=== PATIENT | female | born 1930 | race Caucasian/White ===

== ENCOUNTER 2017-11-19 13:58 | Inpatient (IN) | payer MEDICARE, OTHER ==
[2017-11-19 14:30] LABS: % BASOPHILS 0.1 % (0.0-2.0); % EOSINOPHILS 1.5 % (0.0-5.0); % LYMPHOCYTES 20.3 % (20.0-50.0); % MONOCYTES 3.9 % (2.0-10.0); % NEUTROPHILS 74.2 % (40.0-80.0); EOSINOPHILE ABSOLUTE 0.2 Th/cmm (0.1-0.4); HEMATOCRIT 42.9 % (41.0-60); HEMOGLOBIN 14.4 gm/dL (12-16); LYMPHOCYTE ABSOLUTE 2.7 Th/cmm (1.5-3.0); MEAN CELL VOLUME 92.8 fl (81-100); MEAN CORPUSCULAR HEMOGLOBIN 31.1 pg (27.0-31.0); MEAN CORPUSCULAR HGB CONC 33.5 pg (28.0-36.0); MEAN PLATELET VOLUME 7.8 fl; MONOCYTE ABSOLUTE 0.5 Th/cmm (0.3-1.0); NEUTROPHILE ABSOLUTE 9.7 Th/cmm (1.8-8.0); PLATELET COUNT 308 Th/cmm (150-400); RED BLOOD COUNT 4.62 Mil/cmm (3.80-5.20); RED CELL DISTRIBUTION WIDTH 13.5 % (11.5-20.0)
--- NOTE | 2017-11-19 14:32 | ED Physician Chart ---
ED Chief Complaint/HPI - Patient Information Date Seen:: 11/19/17 Time Seen:: 14:10 Chief Complaint:: poor oral intake History of Present Illness:: Patient is sent here for poor oral intake and possible placement of a gastrostomy tube. Per daughter patient had some crampy abdominal pain earlier today. Historian:: Patient, EMS Review:: Nurse's Note Reviewed ED Review of Systems - Review of Systems General/Constitutional: Loss of appetite Skin: No skin lesions, No rash, No bruising Head: No headache, No light-headedness Eyes: No loss of vision, No pain, No diplopia ENT: No earache, No nasal drainage, No sore throat, No tinnitus Neck: No neck pain, No swelling, No thyromegaly, No stiffness, No mass noted Cardio Vascular: No chest pain, No palpitations, No PND, No orthopnea, No edema Pulmonary: No SOB, No cough, No sputum, No wheezing GI: No nausea, No vomiting, No diarrhea, No pain, No melena, No hematochezia, No constipation, No hematemesis G/U: No dysuria, No frequency, No hematuria Musculoskeletal: No bone or joint pain, No back pain, No muscle pain Endocrine: No polyuria, No polydipsia Psychiatric: No prior psych history, No depression, No anxiety, No suicidal ideation Hematopoietic: No bruising, No lymphadenopathy Allergic/Immuno: No urticaria, No angioedema Neurological: No syncope, No focal symptoms, No weakness, No paresthesia, No headache, No seizure, No dizziness, No confusion, No vertigo ED Past Medical History - Past Medical History Past Medical History: CVA/TIA, Other (status post pneumonia; status post sepsis ; history of lactic acidosis; status post pneumonia; history of dehydration; status post deep vein thrombosis; history of atrial fibrillation; history of urinary tract infection;) Family History: Other (unavailable) Social History: Care Facility Surgical History: other (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; has right- sided paralysis) Psychiatricy History: None Medication: Reviewed Family Medical History - Family Member Mother History Unknown: Yes Ethnicity: Living Status: ED Physical Exam - Physical Examination Other Gen/Cons comments:: Chronically ill-appearing; confused; does not know the correct year Head: Atraumatic Eyes: Lids, conjuctiva normal, PERRL Skin: Nl inspection, No rash, No skin lesions, No ecchymosis ENMT: External ears, nose nl, Nasal exam nl Neck: No nuchal rigidity Respiratory: Nl effort/Exclusion Other Respiratory comments:: Diffuse anterior rales Cardio Vascular: RRR, No murmur, gallop, rubs, NL S1 S2 GI: No tenderness/rebounding/guarding, No organomegaly, No hernia : No CVA tenderness Other Neuro/Psych comments:: Drooping of right side of mouth and right upper and lower extremity weakness Misc: Normal back ED Labs/Radiology/EKG Results - Lab Results Results: Laboratory Results - last 24 hr 11/19/17 11/19/17 11/19/17 14:22 14:22 14:22 WBC 13.1 H RBC 4.62 Hgb 14.4 Hct 42.9 MCV 92.8 MCH 31.1 H MCHC Differential 33.5 RDW 13.5 Plt Count 308 MPV 7.8 Neutrophils % 74.2 Lymphocytes % 20.3 Monocytes % 3.9 Eosinophils % 1.5 Basophils % 0.1 PT 11.1 INR 1.07 PTT (Actin FS) 27.2 Sodium 139 Potassium 3.7 Chloride 108 H Carbon Dioxide 22.6 Anion Gap 12.1 BUN 18 Creatinine 0.5 L Est GFR ( Amer) TNP Est GFR (Non-Af Amer) TNP BUN/Creatinine Ratio 36.0 Glucose 90 Calcium 9.0 - Radiology Results Results: Chest x-ray was normal except for slight elevation of right hemidiaphragm ED Septic Shock - . 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 - Patient Disposition Admitted to:: Med/Surg Admitting Medical Physician:: Sanjiv Bajwa Condition at Disposition:: Stable, Unchanged ED Discharge Plan - Patient Disposition Admit/Discharge/Transfer: Acute Care w/in this hosp
[2017-11-19 14:44] LABS: INR 1.07 (0.5-1.4); PROTHROMBIN TIME (TEST) 11.1 SECONDS (9.5-11.5)
[2017-11-19 14:46] LABS: WHITE BLOOD COUNT 13.1 Th/cmm (4.8-10.8)
[2017-11-19 14:48] LABS: ANION GAP 12.1 (7.0-16.0); BUN - UREA NITROGEN 18 mg/dL (7-25); CARBON DIOXIDE 22.6 mEq/L (21.0-31.0); CHLORIDE 108 mEq/L (98-107); CREATININE - SERUM 0.5 mg/dL (0.6-1.2); GLUCOSE 90 mg/dL (70-105); POTASSIUM SERUM 3.7 mEq/L (3.5-5.1); SODIUM SERUM 139 mEq/L (136-145)
--- NOTE | 2017-11-19 14:53 | Diagnostic Imaging Report ---
CHEST X-RAY: AP view INDICATION: rales COMPARISON: None FINDINGS: Mild chronic lung changes are noted. There is no focal consolidation or pleural effusions The heart is normal in size. The osseous structures demonstrate no acute abnormalities. There may be a retrocardiac hiatal hernia. IMPRESSION: No focal consolidation identified. Possible retrocardiac hiatal hernia. If indicated lateral view may be obtained.
[2017-11-19] MEDS ORDERED: Albuterol Nebulizer 2.5mg/3mL HHN PRN (15:16)
[2017-11-19] MEDS ORDERED: Ipratropium Neb 0.5 mg/2.5 mL UD IH PRN (15:16)
[2017-11-19] MEDS ORDERED: Maalox 30 mL Cup PO PRN (15:16)
[2017-11-19] MEDS ORDERED: guaiFENesin 200 MG/10 ML UDC PO PRN (15:16)
[2017-11-19] MEDS: D5-0.45NS 1,000 ML IV SCH (16:49)
--- NOTE | 2017-11-19 17:05 | History & Physical ---
ADMIT DATE: 11/19/2017 CHIEF COMPLAINT: Failure to thrive, nonhealing wounds. HISTORY OF PRESENT ILLNESS: This is an 86-year-old female with history of dementia, functional quadriplegia, constipation, decubitus ulcer, admitted secondary to not eating or drinking, not taking her medications. Daughters were concerned about the patient and brought the patient for further management. They were considering a G-tube placement. PAST MEDICAL HISTORY: As mentioned in history of present illness. PAST SURGICAL HISTORY: Previous G-tube placement. ALLERGIES: No known drug allergies. MEDICATIONS: Tylenol, Dulcolax, and multivitamin. FAMILY HISTORY: Noncontributory. SOCIAL HISTORY: The patient is a [facility] patient requiring 24-hour total care. REVIEW OF SYSTEMS: This is limited secondary to the patient's current mental state. Information was got via daughters at the bedside. Also got information from nursing staff at [facility] as well as from Dr. Scanlon who follows the patient. PHYSICAL EXAMINATION: VITAL SIGNS: Blood pressure 130/60, respiration 18, pulse 80, temperature 98.6, weight 100 kilograms. GENERAL: Chronically ill-appearing elderly female. NECK: Supple. No mass. LUNGS: Equal breath sounds. Few rhonchi. HEART: Regular rate and rhythm. Systolic ejection murmur. ABDOMEN: Soft, globular. EXTREMITIES: Positive excoriation. NEUROLOGIC: Limited, positive decubitus ulcer stage 2 with contractures. LABORATORY DATA: WBC 18. The rest are pending. ASSESSMENT AND PLAN: Failure to thrive, leukocytosis, possible sepsis, dementia, functional quadriplegia, decubitus ulcer, constipation. We will provide the patient with IV hydration and empiric IV antibiotic. We will send a UA and C and S. We may need to be in and out. The case was discussed with the family, they are agreeable with possible G-tube placement. Continue with wound care. We will refer the patient to program eligibility specialist. We will put the patient on laxative. We will continue to monitor the patient closely. JOB# [id number]
[2017-11-19] MEDS: cefTRIAXone 1 GM in Sodium Chloride 0.9% 50 ML IV SCH (17:20)
[2017-11-19 20:20] VITALS: BP 116/60
[2017-11-19 21:42] LABS: URINE MICROSCOPIC INDICATED? YES; URINE SOURCE CATH
[2017-11-19 21:43] LABS: URINE BILIRUBIN NEGATIVE (NEGATIVE); URINE BLOOD SMALL (NEGATIVE); URINE GLUCOSE (UA) NEGATIVE (NEGATIVE); URINE KETONE NEGATIVE (NEGATIVE); URINE LEUKOCYTE ESTERASE LARGE (NEGATIVE); URINE NITRATE POSITIVE (NEGATIVE); URINE PROTEIN TRACE mg/dL (NEGATIVE); URINE UROBILINOGEN 0.2 E.U./dL (0.2 - 1.0)
[2017-11-19 21:57] LABS: URINE CLARITY CLOUDY (CLEAR); URINE COLOR YELLOW
[2017-11-19 22:02] LABS: URINE BACTERIA MANY /hpf (NONE SEEN); URINE EPITHELIAL CELLS NONE SEEN /lpf (FEW); URINE WBC >100 /hpf (0-5)
[2017-11-20] MEDS: D5-0.45NS 1,000 ML IV SCH (04:13)
[2017-11-20 07:35] LABS: % BASOPHILS 0.4 % (0.0-2.0); % EOSINOPHILS 3.2 % (0.0-5.0); % LYMPHOCYTES 25.8 % (20.0-50.0); % NEUTROPHILS 63.6 % (40.0-80.0); EOSINOPHILE ABSOLUTE 0.3 Th/cmm (0.1-0.4); HEMATOCRIT 37.5 % (41.0-60); HEMOGLOBIN 12.6 gm/dL (12-16); LYMPHOCYTE ABSOLUTE 2.6 Th/cmm (1.5-3.0); MEAN CELL VOLUME 91.8 fl (81-100); MEAN CORPUSCULAR HEMOGLOBIN 30.8 pg (27.0-31.0); MEAN CORPUSCULAR HGB CONC 33.6 pg (28.0-36.0); MEAN PLATELET VOLUME 7.8 fl; MONOCYTE ABSOLUTE 0.7 Th/cmm (0.3-1.0); NEUTROPHILE ABSOLUTE 6.4 Th/cmm (1.8-8.0); PLATELET COUNT 272 Th/cmm (150-400); RED BLOOD COUNT 4.09 Mil/cmm (3.80-5.20); RED CELL DISTRIBUTION WIDTH 13.9 % (11.5-20.0)
[2017-11-20 08:00] LABS: ANION GAP 10.7 (7.0-16.0); BUN - UREA NITROGEN 15 mg/dL (7-25); CALCIUM SERUM 8.4 mg/dL (8.6-10.3); CARBON DIOXIDE 20.9 mEq/L (21.0-31.0); CHLORIDE 108 mEq/L (98-107); CREATININE - SERUM 0.5 mg/dL (0.6-1.2); GLUCOSE 95 mg/dL (70-105); POTASSIUM SERUM 3.6 mEq/L (3.5-5.1); SODIUM SERUM 136 mEq/L (136-145)
[2017-11-20 08:17] LABS: INR 1.14 (0.5-1.4)
[2017-11-20] MEDS ORDERED: CALCIUM CARBONATE PO SCH (09:00)
[2017-11-20] MEDS ORDERED: [UNRECOGNIZED DRUG - OTHER] PO SCH (09:00)
[2017-11-20] MEDS ORDERED: VITAMIN D3 PO SCH (09:00)
[2017-11-20] MEDS ORDERED: Propofol 10 mg/mL 20mL Vial **SURGERY USE ONLY IV ONE (13:00)
[2017-11-20] MEDS ORDERED: Lidocaine 2% Gel 5 mL TP ONE (13:00)
[2017-11-20] MEDS: cefTRIAXone 1 GM in Sodium Chloride 0.9% 50 ML IV SCH (14:36)
[2017-11-20] MEDS ORDERED: VTE Chemical Prophylaxis Screen/Admission MC PRN (15:03)
--- NOTE | 2017-11-20 15:23 | Internal Medicine Prog Note ---
Internal Medicine Subjective - Subjective Patient seen and examined:: with staff, chart reviewed Patient is:: awake, non-verbal, non-interactive Patient Complaints of:: congestion, cough, unable to sleep Per staff patient has:: no adverse event, no episodes of fall, agitated, combative, noncompliant, tolerating meds Internal Medicine Objective - Results Result Diagrams: 11/20/17 07:20 11/20/17 07:20 Recent Labs: Laboratory Last Values WBC 10.0 Th/cmm (4.8-10.8) D 11/20/17 07:20 RBC 4.09 Mil/cmm (3.80-5.20) 11/20/17 07:20 Hgb 12.6 gm/dL (12-16) 11/20/17 07:20 Hct 37.5 % (41.0-60) L D 11/20/17 07:20 MCV 91.8 fl (81-100) 11/20/17 07:20 MCH 30.8 pg (27.0-31.0) 11/20/17 07:20 MCHC Differential 33.6 pg (28.0-36.0) 11/20/17 07:20 RDW 13.9 % (11.5-20.0) 11/20/17 07:20 Plt Count 272 Th/cmm (150-400) 11/20/17 07:20 MPV 7.8 fl 11/20/17 07:20 Neutrophils % 63.6 % (40.0-80.0) 11/20/17 07:20 Lymphocytes % 25.8 % (20.0-50.0) 11/20/17 07:20 Monocytes % 7.0 % (2.0-10.0) 11/20/17 07:20 Eosinophils % 3.2 % (0.0-5.0) 11/20/17 07:20 Basophils % 0.4 % (0.0-2.0) 11/20/17 07:20 PT 12.0 SECONDS (9.5-11.5) H 11/20/17 07:20 INR 1.14 (0.5-1.4) 11/20/17 07:20 PTT (Actin FS) 33.0 SECONDS (26.0-38.0) 11/20/17 07:20 Sodium 136 mEq/L (136-145) 11/20/17 07:20 Potassium 3.6 mEq/L (3.5-5.1) 11/20/17 07:20 Chloride 108 mEq/L (98-107) H 11/20/17 07:20 Carbon Dioxide 20.9 mEq/L (21.0-31.0) L 11/20/17 07:20 Anion Gap 10.7 (7.0-16.0) 11/20/17 07:20 BUN 15 mg/dL (7-25) 11/20/17 07:20 Creatinine 0.5 mg/dL (0.6-1.2) L 11/20/17 07:20 Est GFR ( Amer) TNP 11/20/17 07:20 Est GFR (Non-Af Amer) TNP 11/20/17 07:20 BUN/Creatinine Ratio 30.0 11/20/17 07:20 Glucose 95 mg/dL (70-105) 11/20/17 07:20 Calcium 8.4 mg/dL (8.6-10.3) L 11/20/17 07:20 Urine Source CATH 11/19/17 21:35 Urine Color YELLOW 11/19/17 21:35 Urine Clarity CLOUDY (CLEAR) H 11/19/17 21:35 Urine pH 6.0 (4.6 - 8.0) 11/19/17 21:35 Ur Specific [place] 1.015 (1.005-1.030) 11/19/17 21:35 Urine Protein TRACE mg/dL (NEGATIVE) 11/19/17 21:35 Urine Glucose (UA) NEGATIVE mg/dL (NEGATIVE) 11/19/17 21:35 Urine Ketones NEGATIVE mg/dL (NEGATIVE) 11/19/17 21:35 Urine Blood SMALL (NEGATIVE) H 11/19/17 21:35 Urine Nitrate POSITIVE (NEGATIVE) H 11/19/17 21:35 Urine Bilirubin NEGATIVE (NEGATIVE) 11/19/17 21:35 Urine Urobilinogen 0.2 E.U./dL (0.2 - 1.0) 11/19/17 21:35 Ur Leukocyte Esterase LARGE (NEGATIVE) H 11/19/17 21:35 Urine RBC 2-5 /hpf (0-5) 11/19/17 21:35 Urine WBC >100 /hpf (0-5) H 11/19/17 21:35 Ur Epithelial Cells NONE SEEN /lpf (FEW) 11/19/17 21:35 Urine Bacteria MANY /hpf (NONE SEEN) H 11/19/17 21:35 - Physical Exam Vitals and I&O: Vital Signs Temp 97.6 F 11/20/17 11:44 Pulse 80 11/20/17 11:44 Resp 18 11/20/17 11:44 BP 105/69 11/20/17 11:44 Pulse Ox 98 11/20/17 11:44 Intake & Output 11/19/17 11/20/17 11/20/17 18:59 06:59 18:59 Intake Total 50 972 830.667 Balance 50 972 830.667 Weight (lbs) 51.71 kg 56.245 kg Intake: Intake, IV Amount 50 912 830.667 D5-0.45NS 1,000 ml @ 80 912 830.667 mls/hr IV .[id number] [facility] Rx #:[id number] cefTRIAXone 1 gm In 50 Sodium Chloride 0.9% 50 ml @ 100 mls/hr IV Q24HR [facility] Rx#:[id number] Oral 60 Other: # Voids 2 3 # Bowel Movements 2 3 Stool Characteristics Soft Brown Weight Source Bedscale Bedscale Active Medications: Current Medications Acetaminophen (Tylenol) 650 mg PO Q4HR PRN PRN Reason: Pain (Mild) Stop: 01/18/18 15:14 Last Admin: 11/19/17 22:51 Dose: 650 mg Al Hydrox/Mg Hydrox/Simethicone (Maalox) 30 ml PO Q6H PRN PRN Reason: Dyspepsia Stop: 01/18/18 15:15 Last Admin: 11/19/17 16:38 Dose: 30 ml Albuterol Sulfate (Albuterol 2.5mg/3ml Neb Ud) 2.5 mg HHN Q2HRT PRN PRN Reason: Shortness of Breath or Wheeze Stop: 01/18/18 15:15 Baclofen (Lioresal) 10 mg PO HS [facility] Stop: 01/18/18 20:59 Last Admin: 11/19/17 20:26 Dose: Not Given Calcium Carbonate (Calcium Carb) 600 mg PO DAILY [facility] Stop: 01/19/18 08:59 Last Admin: 11/20/17 08:16 Dose: Not Given Guaifenesin (Robitussin) 200 mg PO Q4HR PRN PRN Reason: Cough or Congestion Stop: 01/18/18 15:15 Heparin Sodium (Porcine) (Heparin) 5,000 units SUBQ Q12H [facility] Stop: 01/19/18 20:59 Ceftriaxone Sodium 1 gm/ (Sodium Chloride) 50 mls @ 100 mls/hr IV Q24HR [facility] Stop: 01/18/18 15:29 Last Admin: 11/20/17 14:36 Dose: 100 mls/hr Dextrose/Sodium Chloride (D5-0.45ns) 1,000 mls @ 80 mls/hr IV .[id number] [facility] Stop: 01/18/18 15:29 Last Infusion: 11/20/17 14:36 Dose: 0 mls/hr Ipratropium [place] (Atrovent Neb 0.5mg/2.5ml) 0.5 mg IH Q2HRT PRN PRN Reason: Shortness of Breath or Wheeze Stop: 01/18/18 15:15 Miscellaneous (Vte Chemical Prophylaxis Screen/ Admission) 1 ea [facility] PRN PRN PRN Reason: PROTOCOL Stop: 01/19/18 15:02 Nystatin (Nystop) 100 units TP BID [facility] Stop: 01/19/18 11:56 Ondansetron HCl (Zofran) 4 mg IV Q8H PRN PRN Reason: Nausea / Vomiting Stop: 01/18/18 15:15 Zolpidem Tartrate (Ambien) 10 mg PO HS PRN PRN Reason: Insomnia Stop: 01/18/18 15:15 General: congested, demented HEENT: NC/AT, PERRLA, EOMI, thinning hair Neck: Supple, No JVD, deformity Lungs: congested, rales, ronchi Cardiovascular: RRR, Normal S1, Normal S2, with murmur Abdomen: soft, non-tender, thin, globular, positive bowel sound Extremities: contracture Neurological: no change, disorganized, unable to follow command Internal Medicine Assmt/Plan - Assessment Assessment: ftt dementia func quadriplegia leukocytosis possible sepsis constipation decub ulcer - Plan Plan: cont on iv abx for gt placement dw family ivf cpm
[2017-11-20] MEDS: NYSTATIN 100000 UNITS/GM POWD TP SCH ×2 (15:35→17:55)
--- NOTE | 2017-11-20 15:44 | Consultation ---
DATE OF CONSULTATION: 11/20/2017 TYPE OF CONSULTATION: GASTROENTEROLOGY. REQUESTING PHYSICIAN: Dr. Sanjiv Bajwa. REASON FOR CONSULTATION: Dysphagia and anorexia with failure to thrive. HISTORY OF PRESENT ILLNESS: This is an 86-year-old female with a history of dementia, functional quadriplegia, constipation, decubitus ulcer, admitted for not eating or drinking with failure to thrive. Family was concerned and requested G-tube insertion. Therefore, we were asked to evaluate the patient. PAST MEDICAL HISTORY: As above. PAST SURGICAL HISTORY: The patient has had a G-tube inserted in the past, but this was removed after she started eating better. MEDICATIONS: Tylenol, Maalox, albuterol, baclofen, calcium carbonate, Rocephin, Atrovent, nystatin, Zofran and Ambien p.r.n. ALLERGIES: No known drug allergies. SOCIAL HISTORY: No recent tobacco, alcohol or drugs. FAMILY HISTORY: Noncontributory. REVIEW OF SYSTEMS: A comprehensive 12-point review of systems was conducted with the patient's family and is only positive for those signs and symptoms present in history of present illness. PHYSICAL EXAMINATION: VITAL SIGNS: Temperature 97.6, blood pressure 105/69, pulse is 80, respirations 18, and O2 sat 98%. GENERAL: The patient is well-developed, chronically ill-appearing female who is lethargic, in no acute distress. HEENT: Sclerae are nonicteric. Oropharynx is clear. CARDIOVASCULAR: Regular rate and rhythm. LUNGS: Clear to auscultation bilaterally. ABDOMEN: Soft, nontender, nondistended. EXTREMITIES: No clubbing, cyanosis or edema. Contractured. RECTAL: Exam is deferred. LABORATORY DATA AND IMAGING: WBC 10, hemoglobin 12.6, platelet count is 272. INR is 1.14. Creatinine is 0.5. Urinalysis shows cloudy urine with positive nitrites and greater than 100 wbc's. IMPRESSION: 1. Dysphagia with failure to thrive. 2. Dementia. 3. Constipation. 4. Decubitus ulcer. 5. Urinary tract infection. RECOMMENDATIONS: 1. Upper endoscopy with G-tube insertion to follow. 2. Continue antibiotics including Rocephin. No further antibiotic prophylaxis is necessary. 3. Further recommendations following G-tube insertion. Thank you, Dr. Sanjiv Bajwa for involving us in the care of your patient. If you have any further questions, please call us. JOB# [id number]
--- NOTE | 2017-11-20 17:16 | Operative Report ---
DATE OF SURGERY: 11/20/2017 PROCEDURE: Esophagogastroduodenoscopy with G-tube insertion PREOPERATIVE DIAGNOSIS: Dysphagia. POSTOPERATIVE DIAGNOSES: Status post successful G-tube insertion via pull technique. INDICATION: An 86-year-old demented female with anorexia and failure to thrive, undergoing an upper endoscopy for G-tube insertion for long-term nutritional purposes and medication delivery. CONSENT: Informed consent was obtained from the patient's family prior to procedure after explanation of risks, benefits, alternatives, including but not limited to infection, perforation and . SEDATION: Monitored anesthesia care by Dr. Guardado. DESCRIPTION OF PROCEDURE AND FINDINGS: The procedure took place as an inpatient in the GI suite of [facility]. The patient was kept in a supine position with head of bed slightly elevated. Adequate sedation achieved by Dr. Guardado. An Olympus diagnostic upper endoscope was advanced through the patient's mouth and into the esophagus, was advanced via the stomach and into the duodenum up to second portion. Retroflexion was next performed in the stomach. The visualized portions of the upper GI tract appeared normal. With the scope in the stomach, air was insufflated and an area in the epigastric skin was chosen for G-tube insertion based on transillumination and finger indentation. This area in the skin was then prepped and draped using sterile technique and anesthetized with 5 mL of 1% lidocaine. A scalpel blade was used to make a 1 cm incision in the skin. This was followed by trocar needle insertion through the skin incision with the tip noted endoscopically in the stomach. A guidewire was then inserted via the trocar needle and grasped via a snare device that had been advanced through the working channel of the endoscope. The scope along with a snare device holding on to the guidewire was then pulled out via the patient's mouth. A 20-[place] G-tube was attached to guidewire and then via pull technique, pulled across the abdominal wall. The outer bumper was placed at the 4 cm ginger. Overlying dressing was placed. The tube was noted to be in good position. The patient tolerated the procedure well and no complications are anticipated. RECOMMENDATIONS: 1. May use G-tube today for water flushes and medications. Tube feedings will be started either later on today or tomorrow morning. 2. Monitor labs. 3. Continue supportive care. Thank you, Dr. Sanjiv Bajwa for involving us in the care of your patient. If you have any further questions, please call us. JOB# [id number] ALEXEI
[2017-11-21] MEDS: D5-0.45NS 1,000 ML IV SCH ×2 (03:41→17:35)
[2017-11-21 05:57] LABS: % BASOPHILS 0.5 % (0.0-2.0); % EOSINOPHILS 2.5 % (0.0-5.0); % LYMPHOCYTES 22.8 % (20.0-50.0); % MONOCYTES 6.9 % (2.0-10.0); % NEUTROPHILS 67.3 % (40.0-80.0); EOSINOPHILE ABSOLUTE 0.2 Th/cmm (0.1-0.4); HEMATOCRIT 35.5 % (41.0-60); LYMPHOCYTE ABSOLUTE 2.2 Th/cmm (1.5-3.0); MEAN CELL VOLUME 91.3 fl (81-100); MEAN CORPUSCULAR HEMOGLOBIN 30.9 pg (27.0-31.0); MEAN CORPUSCULAR HGB CONC 33.8 pg (28.0-36.0); MEAN PLATELET VOLUME 7.8 fl; MONOCYTE ABSOLUTE 0.7 Th/cmm (0.3-1.0); NEUTROPHILE ABSOLUTE 6.6 Th/cmm (1.8-8.0); PLATELET COUNT 268 Th/cmm (150-400); RED BLOOD COUNT 3.89 Mil/cmm (3.80-5.20); RED CELL DISTRIBUTION WIDTH 13.1 % (11.5-20.0); WHITE BLOOD COUNT 9.7 Th/cmm (4.8-10.8)
[2017-11-21 06:10] LABS: ANION GAP 9.6 (7.0-16.0); BUN - UREA NITROGEN 7 mg/dL (7-25); CALCIUM SERUM 8.3 mg/dL (8.6-10.3); CARBON DIOXIDE 19.7 mEq/L (21.0-31.0); CHLORIDE 108 mEq/L (98-107); CREATININE - SERUM 0.5 mg/dL (0.6-1.2); GLUCOSE 129 mg/dL (70-105); MAGNESIUM 1.9 mg/dL (1.9-2.7); POTASSIUM SERUM 3.3 mEq/L (3.5-5.1); SODIUM SERUM 134 mEq/L (136-145)
--- NOTE | 2017-11-21 08:34 | GI Progress Note ---
Subjective - Review of Systems Service Date: 11/21/17 Subjective: Tolerating tube feeding Objective - Results Result Diagrams: 11/21/17 05:40 11/21/17 05:40 Recent Labs: Laboratory Last Values WBC 9.7 Th/cmm (4.8-10.8) 11/21/17 05:40 RBC 3.89 Mil/cmm (3.80-5.20) 11/21/17 05:40 Hgb 12.0 gm/dL (12-16) 11/21/17 05:40 Hct 35.5 % (41.0-60) L 11/21/17 05:40 MCV 91.3 fl (81-100) 11/21/17 05:40 MCH 30.9 pg (27.0-31.0) 11/21/17 05:40 MCHC Differential 33.8 pg (28.0-36.0) 11/21/17 05:40 RDW 13.1 % (11.5-20.0) 11/21/17 05:40 Plt Count 268 Th/cmm (150-400) 11/21/17 05:40 MPV 7.8 fl 11/21/17 05:40 Neutrophils % 67.3 % (40.0-80.0) 11/21/17 05:40 Lymphocytes % 22.8 % (20.0-50.0) 11/21/17 05:40 Monocytes % 6.9 % (2.0-10.0) 11/21/17 05:40 Eosinophils % 2.5 % (0.0-5.0) 11/21/17 05:40 Basophils % 0.5 % (0.0-2.0) 11/21/17 05:40 PT 12.0 SECONDS (9.5-11.5) H 11/20/17 07:20 INR 1.14 (0.5-1.4) 11/20/17 07:20 PTT (Actin FS) 33.0 SECONDS (26.0-38.0) 11/20/17 07:20 Sodium 134 mEq/L (136-145) L 11/21/17 05:40 Potassium 3.3 mEq/L (3.5-5.1) L 11/21/17 05:40 Chloride 108 mEq/L (98-107) H 11/21/17 05:40 Carbon Dioxide 19.7 mEq/L (21.0-31.0) L 11/21/17 05:40 Anion Gap 9.6 (7.0-16.0) 11/21/17 05:40 BUN 7 mg/dL (7-25) 11/21/17 05:40 Creatinine 0.5 mg/dL (0.6-1.2) L 11/21/17 05:40 Est GFR ( Amer) TNP 11/21/17 05:40 Est GFR (Non-Af Amer) TNP 11/21/17 05:40 BUN/Creatinine Ratio 14.0 11/21/17 05:40 Glucose 129 mg/dL (70-105) H 11/21/17 05:40 Calcium 8.3 mg/dL (8.6-10.3) L 11/21/17 05:40 Magnesium 1.9 mg/dL (1.9-2.7) 11/21/17 05:40 B-Natriuretic Peptide 54.8 pg/mL (5.0-100.0) 11/21/17 05:40 Urine Source CATH 11/19/17 21:35 Urine Color YELLOW 11/19/17 21:35 Urine Clarity CLOUDY (CLEAR) H 11/19/17 21:35 Urine pH 6.0 (4.6 - 8.0) 11/19/17 21:35 Ur Specific [place] 1.015 (1.005-1.030) 11/19/17 21:35 Urine Protein TRACE mg/dL (NEGATIVE) 11/19/17 21:35 Urine Glucose (UA) NEGATIVE mg/dL (NEGATIVE) 11/19/17 21:35 Urine Ketones NEGATIVE mg/dL (NEGATIVE) 11/19/17 21:35 Urine Blood SMALL (NEGATIVE) H 11/19/17 21:35 Urine Nitrate POSITIVE (NEGATIVE) H 11/19/17 21:35 Urine Bilirubin NEGATIVE (NEGATIVE) 11/19/17 21:35 Urine Urobilinogen 0.2 E.U./dL (0.2 - 1.0) 11/19/17 21:35 Ur Leukocyte Esterase LARGE (NEGATIVE) H 11/19/17 21:35 Urine RBC 2-5 /hpf (0-5) 11/19/17 21:35 Urine WBC >100 /hpf (0-5) H 11/19/17 21:35 Ur Epithelial Cells NONE SEEN /lpf (FEW) 11/19/17 21:35 Urine Bacteria MANY /hpf (NONE SEEN) H 11/19/17 21:35 - Physical Exam Vitals and I&O: Vital Signs Temp 98.0 F 11/21/17 04:00 Pulse 84 11/21/17 04:00 Resp 18 11/21/17 04:00 BP 126/64 11/21/17 04:00 Pulse Ox 97 11/21/17 04:00 Intake & Output 11/20/17 11/21/17 11/21/17 18:59 06:59 18:59 Intake Total 830.667 380 Balance 830.667 380 Weight (lbs) 56.245 kg Intake: Intake, IV Amount 830.667 0 D5-0.45NS 1,000 ml @ 80 830.667 0 mls/hr IV .[id number] [facility] Rx #:[id number] Tube Feeding 260 Other 120 Other: # Voids 3 # Bowel Movements 2 Weight Source Bedscale Active Medications: Current Medications Acetaminophen (Tylenol) 650 mg PO Q4HR PRN PRN Reason: Pain (Mild) Stop: 01/18/18 15:14 Last Admin: 11/20/17 22:07 Dose: 650 mg Al Hydrox/Mg Hydrox/Simethicone (Maalox) 30 ml PO Q6H PRN PRN Reason: Dyspepsia Stop: 01/18/18 15:15 Last Admin: 11/19/17 16:38 Dose: 30 ml Albuterol Sulfate (Albuterol 2.5mg/3ml Neb Ud) 2.5 mg HHN Q2HRT PRN PRN Reason: Shortness of Breath or Wheeze Stop: 01/18/18 15:15 Baclofen (Lioresal) 10 mg PO HS [facility] Stop: 01/18/18 20:59 Last Admin: 11/20/17 20:11 Dose: 10 mg Calcium Carbonate (Calcium Carb) 600 mg PO DAILY [facility] Stop: 01/19/18 08:59 Last Admin: 11/20/17 08:16 Dose: Not Given Guaifenesin (Robitussin) 200 mg PO Q4HR PRN PRN Reason: Cough or Congestion Stop: 01/18/18 15:15 Heparin Sodium (Porcine) (Heparin) 5,000 units SUBQ Q12H [facility] Stop: 01/19/18 20:59 Last Admin: 11/20/17 20:11 Dose: 5,000 units Ceftriaxone Sodium 1 gm/ (Sodium Chloride) 50 mls @ 100 mls/hr IV Q24HR [facility] Stop: 01/18/18 15:29 Last Admin: 11/20/17 14:36 Dose: 100 mls/hr Dextrose/Sodium Chloride (D5-0.45ns) 1,000 mls @ 80 mls/hr IV .[id number] [facility] Stop: 01/18/18 15:29 Last Admin: 11/21/17 03:41 Dose: 80 mls/hr Ipratropium [place] (Atrovent Neb 0.5mg/2.5ml) 0.5 mg IH Q2HRT PRN PRN Reason: Shortness of Breath or Wheeze Stop: 01/18/18 15:15 Miscellaneous (Vte Chemical Prophylaxis Screen/ Admission) 1 ea [facility] PRN PRN PRN Reason: PROTOCOL Stop: 01/19/18 15:02 Nystatin (Nystop) 100 units TP BID [facility] Stop: 01/19/18 11:56 Last Admin: 11/20/17 17:55 Dose: 100 units Ondansetron HCl (Zofran) 4 mg IV Q8H PRN PRN Reason: Nausea / Vomiting Stop: 01/18/18 15:15 Zolpidem Tartrate (Ambien) 10 mg PO HS PRN PRN Reason: Insomnia Stop: 01/18/18 15:15 HEENT: Atraumatic Neck: Supple Cardiovascular: Regular rate Abdomen: Bowel sounds, Soft, no Tender, no Hepatomegaly, no Rebound, no Mass, no Guarding Assessment/Plan - Assessment Assessment: # Dysphagia # Dementia Tolerating her G tube feedings today Plan: - cont titrate to goal rate - check residuals - flush G tube every 6 hours with 100cc water GI to see this patient as needed, please call with any questions
[2017-11-21] MEDS ORDERED: Potassium Chloride 20 mEq ER Tab PO ONE (11:47)
--- NOTE | 2017-11-21 11:48 | Internal Medicine Prog Note ---
Internal Medicine Subjective - Subjective Patient seen and examined:: with staff, chart reviewed, other (family at bedside ) Patient is:: awake, non-verbal, non-interactive Patient Complaints of:: congestion, cough, unable to sleep Per staff patient has:: no adverse event, no episodes of fall, agitated, combative, noncompliant, tolerating meds Internal Medicine Objective - Results Result Diagrams: 11/21/17 05:40 11/21/17 05:40 Recent Labs: Laboratory Last Values WBC 9.7 Th/cmm (4.8-10.8) 11/21/17 05:40 RBC 3.89 Mil/cmm (3.80-5.20) 11/21/17 05:40 Hgb 12.0 gm/dL (12-16) 11/21/17 05:40 Hct 35.5 % (41.0-60) L 11/21/17 05:40 MCV 91.3 fl (81-100) 11/21/17 05:40 MCH 30.9 pg (27.0-31.0) 11/21/17 05:40 MCHC Differential 33.8 pg (28.0-36.0) 11/21/17 05:40 RDW 13.1 % (11.5-20.0) 11/21/17 05:40 Plt Count 268 Th/cmm (150-400) 11/21/17 05:40 MPV 7.8 fl 11/21/17 05:40 Neutrophils % 67.3 % (40.0-80.0) 11/21/17 05:40 Lymphocytes % 22.8 % (20.0-50.0) 11/21/17 05:40 Monocytes % 6.9 % (2.0-10.0) 11/21/17 05:40 Eosinophils % 2.5 % (0.0-5.0) 11/21/17 05:40 Basophils % 0.5 % (0.0-2.0) 11/21/17 05:40 PT 12.0 SECONDS (9.5-11.5) H 11/20/17 07:20 INR 1.14 (0.5-1.4) 11/20/17 07:20 PTT (Actin FS) 33.0 SECONDS (26.0-38.0) 11/20/17 07:20 Sodium 134 mEq/L (136-145) L 11/21/17 05:40 Potassium 3.3 mEq/L (3.5-5.1) L 11/21/17 05:40 Chloride 108 mEq/L (98-107) H 11/21/17 05:40 Carbon Dioxide 19.7 mEq/L (21.0-31.0) L 11/21/17 05:40 Anion Gap 9.6 (7.0-16.0) 11/21/17 05:40 BUN 7 mg/dL (7-25) 11/21/17 05:40 Creatinine 0.5 mg/dL (0.6-1.2) L 11/21/17 05:40 Est GFR ( Amer) TNP 11/21/17 05:40 Est GFR (Non-Af Amer) TNP 11/21/17 05:40 BUN/Creatinine Ratio 14.0 11/21/17 05:40 Glucose 129 mg/dL (70-105) H 11/21/17 05:40 Calcium 8.3 mg/dL (8.6-10.3) L 11/21/17 05:40 Magnesium 1.9 mg/dL (1.9-2.7) 11/21/17 05:40 B-Natriuretic Peptide 54.8 pg/mL (5.0-100.0) 11/21/17 05:40 Urine Source CATH 11/19/17 21:35 Urine Color YELLOW 11/19/17 21:35 Urine Clarity CLOUDY (CLEAR) H 11/19/17 21:35 Urine pH 6.0 (4.6 - 8.0) 11/19/17 21:35 Ur Specific [place] 1.015 (1.005-1.030) 11/19/17 21:35 Urine Protein TRACE mg/dL (NEGATIVE) 11/19/17 21:35 Urine Glucose (UA) NEGATIVE mg/dL (NEGATIVE) 11/19/17 21:35 Urine Ketones NEGATIVE mg/dL (NEGATIVE) 11/19/17 21:35 Urine Blood SMALL (NEGATIVE) H 11/19/17 21:35 Urine Nitrate POSITIVE (NEGATIVE) H 11/19/17 21:35 Urine Bilirubin NEGATIVE (NEGATIVE) 11/19/17 21:35 Urine Urobilinogen 0.2 E.U./dL (0.2 - 1.0) 11/19/17 21:35 Ur Leukocyte Esterase LARGE (NEGATIVE) H 11/19/17 21:35 Urine RBC 2-5 /hpf (0-5) 11/19/17 21:35 Urine WBC >100 /hpf (0-5) H 11/19/17 21:35 Ur Epithelial Cells NONE SEEN /lpf (FEW) 11/19/17 21:35 Urine Bacteria MANY /hpf (NONE SEEN) H 11/19/17 21:35 - Physical Exam Vitals and I&O: Vital Signs Temp 97.0 F 11/21/17 10:08 Pulse 72 11/21/17 10:08 Resp 18 11/21/17 10:08 BP 116/64 11/21/17 10:08 Pulse Ox 100 11/21/17 10:08 Intake & Output 11/20/17 11/21/17 11/21/17 18:59 06:59 18:59 Intake Total 830.667 380 Balance 830.667 380 Weight (lbs) 56.245 kg Intake: Intake, IV Amount 830.667 0 D5-0.45NS 1,000 ml @ 80 830.667 0 mls/hr IV .[id number] [facility] Rx #:[id number] Tube Feeding 260 Other 120 Other: # Voids 3 # Bowel Movements 2 Weight Source Bedscale Active Medications: Current Medications Acetaminophen (Tylenol) 650 mg PO Q4HR PRN PRN Reason: Pain (Mild) Stop: 01/18/18 15:14 Last Admin: 11/21/17 11:46 Dose: 650 mg Al Hydrox/Mg Hydrox/Simethicone (Maalox) 30 ml PO Q6H PRN PRN Reason: Dyspepsia Stop: 01/18/18 15:15 Last Admin: 11/19/17 16:38 Dose: 30 ml Albuterol Sulfate (Albuterol 2.5mg/3ml Neb Ud) 2.5 mg HHN Q2HRT PRN PRN Reason: Shortness of Breath or Wheeze Stop: 01/18/18 15:15 Baclofen (Lioresal) 10 mg PO HS [facility] Stop: 01/18/18 20:59 Last Admin: 11/20/17 20:11 Dose: 10 mg Calcium Carbonate (Calcium Carb) 600 mg PO DAILY [facility] Stop: 01/19/18 08:59 Last Admin: 11/21/17 08:58 Dose: 600 mg Guaifenesin (Robitussin) 200 mg PO Q4HR PRN PRN Reason: Cough or Congestion Stop: 01/18/18 15:15 Heparin Sodium (Porcine) (Heparin) 5,000 units SUBQ Q12H [facility] Stop: 01/19/18 20:59 Last Admin: 11/21/17 08:58 Dose: 5,000 units Ceftriaxone Sodium 1 gm/ (Sodium Chloride) 50 mls @ 100 mls/hr IV Q24HR [facility] Stop: 01/18/18 15:29 Last Admin: 11/20/17 14:36 Dose: 100 mls/hr Dextrose/Sodium Chloride (D5-0.45ns) 1,000 mls @ 80 mls/hr IV .[id number] [facility] Stop: 01/18/18 15:29 Last Admin: 11/21/17 03:41 Dose: 80 mls/hr Ipratropium [place] (Atrovent Neb 0.5mg/2.5ml) 0.5 mg IH Q2HRT PRN PRN Reason: Shortness of Breath or Wheeze Stop: 01/18/18 15:15 Miscellaneous (Vte Chemical Prophylaxis Screen/ Admission) 1 ea MC PRN PRN PRN Reason: PROTOCOL Stop: 01/19/18 15:02 Nystatin (Nystop) 100 units TP BID [facility] Stop: 01/19/18 11:56 Last Admin: 11/20/17 17:55 Dose: 100 units Ondansetron HCl (Zofran) 4 mg IV Q8H PRN PRN Reason: Nausea / Vomiting Stop: 01/18/18 15:15 Zolpidem Tartrate (Ambien) 10 mg PO HS PRN PRN Reason: Insomnia Stop: 01/18/18 15:15 General: congested, demented HEENT: NC/AT, PERRLA, EOMI, thinning hair Neck: Supple, No JVD, deformity Lungs: congested, rales, ronchi Cardiovascular: RRR, Normal S1, Normal S2, with murmur Abdomen: soft, non-tender, thin, globular, positive bowel sound Extremities: contracture Neurological: no change, disorganized, unable to follow command Internal Medicine Assmt/Plan - Assessment Assessment: ftt dementia func quadriplegia leukocytosis possible sepsis constipation decub ulcer - Plan Plan: cont on iv abx for gt placement dw family ivf cpm will replace lytes Nutritional Asmnt/Malnutr-PDOC - Dietary Evaluation Malnutrition Findings (Please click <Entered> for more info): Nutritional Asmnt/Malnutrition Start: 11/20/17 16: 26 Text: Status: Complete Freq: Document 11/20/17 16:27 SUZAN (Rec: 11/20/17 16:43 LCIZABEL [id number]) Nutritional Asmnt/Malnutrition Patient General Information Nutritional Screening High Risk Consult Diagnosis dehydration, failure to thrive Pertinent Medical Hx/Surgical Hx CVA/TIA, PNA, UTI, decubitus ulcer, constipation, functional quadriplegia, dementia, PEG, sepsis, lactic acidosis, DVT, Afib Subjective Information Pt had PEG placement today d/t not eating and drinking. TF will start tonight Current Diet Order/ Nutrition Support Fibersource HN start at 20ml/ hr, goal rate 60ml/hr Pertinent Labs D5-0.45ns Nutritional Hx/Data Height 1.57 m Height (Calculated Centimeters) 157.5 Current Weight (lbs) 56.245 kg Weight (Calculated Kilograms) 56.2 Weight (Calculated Grams) 75814.5 [place] Body Weight 110 Body Mass Index (BMI) 22.6 Weight Status Approriate GI Symptoms GI Symptoms None Last BM 11/20 x 3 Difficult in: None Skin Integrity/Comment: rash vagina, buttocks and neck , pressure ulcer to sacrum Estimated Nutritional Goals BEE in Kcals: Using Current wt Calories/Kcals/Kg 30-35 Kcals Calculated 0659-2104 Protein: Using Current wt Protein g/k.2-1.4 Protein Calculated 67-78 Fluid: ml 1680-1960ml (1ml/kcal) Nutritional Problem 1. Problem Problem increased nutrition needs Etiology increased metabolic rate for wound healing Signs/Symptoms: pressure ulcer Intervention/Recommendation Comments 1. Start TF as ordered. It will provide 1728kcal, 77g protein, 1166ml free water, meeting 100% of nutritional needs 2. Recommend Arginaid BID via Gtube to help wound healing. 3. Monitor TF rate, tolerance, wt weekly, skin integrity and labs 4. F/U as high risk in 2-3 days, 11/22-11/23 Expected Outcomes/Goals Expected Outcomes/Goals 1. Pt to meet at least 75% of nutritional needs via nutrition support with tolerance 2. Wt stability, skin to remain intact, labs to approach WNL.
[2017-11-21] MEDS: NYSTATIN 100000 UNITS/GM POWD TP SCH ×2 (12:47→16:02)
[2017-11-21] MEDS: cefTRIAXone 1 GM in Sodium Chloride 0.9% 50 ML IV SCH (15:11)
[2017-11-21] MEDS ORDERED: Hydrocodone/APAP 5mg/325mg Tab PO PRN (18:06)
[2017-11-21] MEDS ORDERED: Morphine Sulfate 4 mg/mL 1mL Syr IVP PRN (18:27)
[2017-11-22 06:02] LABS: ANION GAP 10.6 (7.0-16.0); BUN - UREA NITROGEN 7 mg/dL (7-25); CALCIUM SERUM 8.4 mg/dL (8.6-10.3); CARBON DIOXIDE 20.8 mEq/L (21.0-31.0); CHLORIDE 109 mEq/L (98-107); CREATININE - SERUM 0.4 mg/dL (0.6-1.2); GLUCOSE 129 mg/dL (70-105); MAGNESIUM 1.8 mg/dL (1.9-2.7); POTASSIUM SERUM 3.4 mEq/L (3.5-5.1); SODIUM SERUM 137 mEq/L (136-145)
[2017-11-22] MEDS: NYSTATIN 100000 UNITS/GM POWD TP SCH ×2 (09:05→17:18)
[2017-11-22] MEDS ORDERED: Mag Sulfate 2gm/50mL Premix 2 GM/50 ML BAG IV ONE (11:51)
[2017-11-22] MEDS ORDERED: Potassium Chloride 20 mEq ER Tab PO ONE (11:51)
[2017-11-22] MEDS: cefTRIAXone 1 GM in Sodium Chloride 0.9% 50 ML IV SCH (17:54)
[2017-11-23] MEDS: D5-0.45NS 1,000 ML IV SCH (05:03)
[2017-11-23 06:51] LABS: ALB/GLOB RATIO 0.7 (1.0-1.8); ALBUMIN 2.5 gm/dL (3.7-5.3); ALKALINE PHOSPHATASE 112 U/L (34-104); ANION GAP 10.3 (7.0-16.0); BILIRUBIN,TOTAL 0.3 mg/dL (0.3-1.0); BUN - UREA NITROGEN 9 mg/dL (7-25); CALCIUM SERUM 8.1 mg/dL (8.6-10.3); CARBON DIOXIDE 23.6 mEq/L (21.0-31.0); CHLORIDE 108 mEq/L (98-107); CREATININE - SERUM 0.5 mg/dL (0.6-1.2); GLUCOSE 103 mg/dL (70-105); MAGNESIUM 2.2 mg/dL (1.9-2.7); POTASSIUM SERUM 3.9 mEq/L (3.5-5.1); SGOT 20 U/L (13-39); SGPT/ALT 12 U/L (7-52); SODIUM SERUM 138 mEq/L (136-145); TOTAL PROTEIN,SERUM 6.3 gm/dL (6.0-8.3)
[2017-11-23] MEDS: NYSTATIN 100000 UNITS/GM POWD TP SCH ×2 (09:23→16:33)
--- NOTE | 2017-11-23 11:23 | GI Progress Note ---
Subjective - Review of Systems Service Date: 11/23/17 Subjective: JOSIAH GT FEEDS. Objective - Results Result Diagrams: 11/21/17 05:40 11/23/17 05:10 Recent Labs: Laboratory Last Values WBC 9.7 Th/cmm (4.8-10.8) 11/21/17 05:40 RBC 3.89 Mil/cmm (3.80-5.20) 11/21/17 05:40 Hgb 12.0 gm/dL (12-16) 11/21/17 05:40 Hct 35.5 % (41.0-60) L 11/21/17 05:40 MCV 91.3 fl (81-100) 11/21/17 05:40 MCH 30.9 pg (27.0-31.0) 11/21/17 05:40 MCHC Differential 33.8 pg (28.0-36.0) 11/21/17 05:40 RDW 13.1 % (11.5-20.0) 11/21/17 05:40 Plt Count 268 Th/cmm (150-400) 11/21/17 05:40 MPV 7.8 fl 11/21/17 05:40 Neutrophils % 67.3 % (40.0-80.0) 11/21/17 05:40 Lymphocytes % 22.8 % (20.0-50.0) 11/21/17 05:40 Monocytes % 6.9 % (2.0-10.0) 11/21/17 05:40 Eosinophils % 2.5 % (0.0-5.0) 11/21/17 05:40 Basophils % 0.5 % (0.0-2.0) 11/21/17 05:40 PT 12.0 SECONDS (9.5-11.5) H 11/20/17 07:20 INR 1.14 (0.5-1.4) 11/20/17 07:20 PTT (Actin FS) 33.0 SECONDS (26.0-38.0) 11/20/17 07:20 Sodium 138 mEq/L (136-145) 11/23/17 05:10 Potassium 3.9 mEq/L (3.5-5.1) 11/23/17 05:10 Chloride 108 mEq/L (98-107) H 11/23/17 05:10 Carbon Dioxide 23.6 mEq/L (21.0-31.0) 11/23/17 05:10 Anion Gap 10.3 (7.0-16.0) 11/23/17 05:10 BUN 9 mg/dL (7-25) 11/23/17 05:10 Creatinine 0.5 mg/dL (0.6-1.2) L 11/23/17 05:10 Est GFR ( Amer) TNP 11/23/17 05:10 Est GFR (Non-Af Amer) TNP 11/23/17 05:10 BUN/Creatinine Ratio 18.0 11/23/17 05:10 Glucose 103 mg/dL (70-105) 11/23/17 05:10 Calcium 8.1 mg/dL (8.6-10.3) L 11/23/17 05:10 Magnesium 2.2 mg/dL (1.9-2.7) 11/23/17 05:10 Total Bilirubin 0.3 mg/dL (0.3-1.0) 11/23/17 05:10 AST 20 U/L (13-39) 11/23/17 05:10 ALT 12 U/L (7-52) 11/23/17 05:10 Alkaline Phosphatase 112 U/L (34-104) H 11/23/17 05:10 B-Natriuretic Peptide 56.0 pg/mL (5.0-100.0) 11/22/17 05:15 Total Protein 6.3 gm/dL (6.0-8.3) 11/23/17 05:10 Albumin 2.5 gm/dL (3.7-5.3) L 11/23/17 05:10 Globulin 3.8 gm/dL 11/23/17 05:10 Albumin/Globulin Ratio 0.7 (1.0-1.8) L 11/23/17 05:10 Urine Source CATH 11/19/17 21:35 Urine Color YELLOW 11/19/17 21:35 Urine Clarity CLOUDY (CLEAR) H 11/19/17 21:35 Urine pH 6.0 (4.6 - 8.0) 11/19/17 21:35 Ur Specific [place] 1.015 (1.005-1.030) 11/19/17 21:35 Urine Protein TRACE mg/dL (NEGATIVE) 11/19/17 21:35 Urine Glucose (UA) NEGATIVE mg/dL (NEGATIVE) 11/19/17 21:35 Urine Ketones NEGATIVE mg/dL (NEGATIVE) 11/19/17 21:35 Urine Blood SMALL (NEGATIVE) H 11/19/17 21:35 Urine Nitrate POSITIVE (NEGATIVE) H 11/19/17 21:35 Urine Bilirubin NEGATIVE (NEGATIVE) 11/19/17 21:35 Urine Urobilinogen 0.2 E.U./dL (0.2 - 1.0) 11/19/17 21:35 Ur Leukocyte Esterase LARGE (NEGATIVE) H 11/19/17 21:35 Urine RBC 2-5 /hpf (0-5) 11/19/17 21:35 Urine WBC >100 /hpf (0-5) H 11/19/17 21:35 Ur Epithelial Cells NONE SEEN /lpf (FEW) 11/19/17 21:35 Urine Bacteria MANY /hpf (NONE SEEN) H 11/19/17 21:35 - Physical Exam Vitals and I&O: Vital Signs Temp 97.0 F 11/23/17 08:00 Pulse 72 11/23/17 08:00 Resp 18 11/23/17 08:00 BP 107/52 11/23/17 08:00 Pulse Ox 97 11/23/17 08:00 Intake & Output 11/22/17 11/23/17 11/23/17 18:59 06:59 18:59 Intake Total 650 Balance 650 Weight (lbs) 70.307 kg 70.307 kg Intake: Intake, IV Amount 50 Tube Feeding 600 Other: # Voids 3 3 # Bowel Movements 0 0 Weight Source Bedscale Bedscale Active Medications: Current Medications Acetaminophen (Tylenol) 650 mg PO Q4HR PRN PRN Reason: Pain (Mild) Stop: 01/18/18 15:14 Last Admin: 11/21/17 11:46 Dose: 650 mg Acetaminophen/Hydrocodone Bitart ([place] 5mg/325mg) 1 tab PO Q4H PRN PRN Reason: Pain (Severe) Stop: 01/20/18 18:05 Last Admin: 11/21/17 18:39 Dose: 1 tab Al Hydrox/Mg Hydrox/Simethicone (Maalox) 30 ml PO Q6H PRN PRN Reason: Dyspepsia Stop: 01/18/18 15:15 Last Admin: 11/19/17 16:38 Dose: 30 ml Albuterol Sulfate (Albuterol 2.5mg/3ml Neb Ud) 2.5 mg HHN Q2HRT PRN PRN Reason: Shortness of Breath or Wheeze Stop: 01/18/18 15:15 Baclofen (Lioresal) 10 mg PO HS [facility] Stop: 01/18/18 20:59 Last Admin: 11/22/17 21:28 Dose: 10 mg Calcium Carbonate (Calcium Carb) 600 mg PO DAILY [facility] Stop: 01/19/18 08:59 Last Admin: 11/23/17 09:28 Dose: 600 mg Guaifenesin (Robitussin) 200 mg PO Q4HR PRN PRN Reason: Cough or Congestion Stop: 01/18/18 15:15 Heparin Sodium (Porcine) (Heparin) 5,000 units SUBQ Q12H [facility] Stop: 01/19/18 20:59 Last Admin: 11/23/17 09:28 Dose: 5,000 units Ceftriaxone Sodium 1 gm/ (Sodium Chloride) 50 mls @ 100 mls/hr IV Q24HR [facility] Stop: 01/18/18 15:29 Last Admin: 11/22/17 17:54 Dose: 100 mls/hr Dextrose/Sodium Chloride (D5-0.45ns) 1,000 mls @ 80 mls/hr IV .[id number] [facility] Stop: 01/18/18 15:29 Last Admin: 11/23/17 05:03 Dose: 80 mls/hr Ipratropium [place] (Atrovent Neb 0.5mg/2.5ml) 0.5 mg IH Q2HRT PRN PRN Reason: Shortness of Breath or Wheeze Stop: 01/18/18 15:15 Miscellaneous (Vte Chemical Prophylaxis Screen/ Admission) 1 ea MC PRN PRN PRN Reason: PROTOCOL Stop: 01/19/18 15:02 Morphine Sulfate (Morphine) 2 mg IVP Q4H PRN PRN Reason: Abdominal Pain Stop: 01/20/18 18:26 Mupirocin (Bactroban Oint) 1 appl TP BID [facility] Stop: 01/20/18 16:59 Last Admin: 11/23/17 09:28 Dose: 1 appl Nystatin (Nystop) 100 units TP BID [facility] Stop: 01/19/18 11:56 Last Admin: 11/22/17 17:18 Dose: 100 units Ondansetron HCl (Zofran) 4 mg IV Q8H PRN PRN Reason: Nausea / Vomiting Stop: 01/18/18 15:15 Zolpidem Tartrate (Ambien) 10 mg PO HS PRN PRN Reason: Insomnia Stop: 01/18/18 15:15 General: No acute distress HEENT: Atraumatic Neck: Supple Cardiovascular: Regular rate Abdomen: Bowel sounds, Soft, Other (INTACT GT), no Tender, no Hepatomegaly, no Rebound, no Mass, no Guarding Assessment/Plan - Assessment Assessment: IMPRESSION: # Dysphagia # Dementia Tolerating her G tube feedings RECOMMENDATIONS: - cont titrate to goal rate - check residuals - flush G tube every 6 hours with 100cc water
[2017-11-23] MEDS ORDERED: Sulfamethoxazole/TMP 800/160mg Tab PO SCH (17:00)
--- NOTE | 2017-11-23 20:10 | Discharge Summary ---
DATE OF DISCHARGE: 11/23/2017 FINAL DIAGNOSES: Urinary tract infection, failure to thrive, sepsis, gluteal ulcer, dementia, functional quadriplegia, decubitus ulcer, and constipation. HISTORY: This is an 86-year-old female with history of dementia, functional quadriplegia, constipation, decubitus ulcer, admitted from nursing facility secondary to above complaints. PHYSICAL EXAMINATION: VITAL SIGNS: Blood pressure 106/70, respirations 18, pulse 77, temperature 97.7. GENERAL: An elderly female, appears chronically ill. NECK: Supple. No mass. LUNGS: Equal breath sounds, few rhonchi. HEART: Regular rate and rhythm with systolic ejection murmur. ABDOMEN: Soft, globular. EXTREMITIES: Positive excoriation. HOSPITAL COURSE: The patient is admitted to the ICU and started initially on Rocephin and then switched now to Bactrim. Urine culture was positive for Klebsiella. ____ she was seen without ____ oral and had a G-tube placed. Case was discussed with family member. CONDITION ON DISCHARGE: Fair. DISCHARGE INSTRUCTIONS: The patient is to continue current regimen. Please see the orders. The patient will be signed out to Dr. Scanlon. JOB# [id number]
== END 2017-11-23 17:52 | DRG 871 ==
LOC: ER 13:58 → MSI 14:55
PROVIDERS: ADMIT Internal Medicine; ATTEND Internal Medicine
PROC: 0DH68UZ Insertion of Feeding Device into Stomach, Via Natural or Artificial Opening Endoscopic (ICD-10-PCS; principal; 2017-11-20)
DX: A41.9 Sepsis, unspecified organism (principal); R53.2 Functional quadriplegia; I69.351 Hemiplegia and hemiparesis following cerebral infarction affecting right dominant side; N39.0 Urinary tract infection, site not specified; F03.90 Unspecified dementia, unspecified severity, without behavioral disturbance, psychotic disturbance, mood disturbance, and anxiety; D33.0 Benign neoplasm of brain, supratentorial; K59.00 Constipation, unspecified; I48.91 Unspecified atrial fibrillation; D64.9 Anemia, unspecified; L89.92 Pressure ulcer of unspecified site, stage 2; R62.7 Adult failure to thrive; R13.10 Dysphagia, unspecified; B96.1 Klebsiella pneumoniae [K. pneumoniae] as the cause of diseases classified elsewhere
CPT/HCPCS: 36415-UA; 71045-TC; 80048-TC; 80053-TC; 81001-TC; 83735-TC; 83880-TC; 85025-TC; 85610-TC; 85730-TC; 87086-90; 93005; 94760; J0696; J1644; J2704; J3475; Z7506; Z7610